=== PATIENT | male | born 1940 | race Caucasian/White ===

== ENCOUNTER 2020-11-24 11:28 | Inpatient (IN) | payer MEDICARE, OTHER ==
[~2020-11-24] VITALS: Ht 170.2 cm; Wt 48.4 kg
[~2020-11-24 11:28] MED LIST: ACET325T26 PO; AMLO-150 PO; AMOX1TAB64 PO; CLON1TAB11 PO; DOCU-131 PO; FOLI1TAB32 PO; LORA2ORA7 PO; LOSA25TA25 PO; LOSA50TA2 PO; METF-734 PO; MORPHINE PO; MOUT240M PO; OXYC10TA6 PO; RISP0.2515 PO; RISP0.5T24 PO; TRAZ150T62 PO; WARF7.5T46 PO; clonazepam; iron supplement; losartan; metformin; trazodone; warfarin
--- NOTE | 2020-11-24 11:38 | NUR ---
TP RN: TELEPHONE CALL FROM [facility]. STATES THAT EPS CASE WAS STARTED BY HER FASHION PHOTOGRAPHER. SENT FROM HOME W/ CONCERNS OF NEGLECT/ABUSE EVIDENCED BY INCREASED FALLS AND BRUISING ON THE FACE AND BRUISES IN DIFFERENT STAGES OF HEALING. STATES HOSPICE PROVIDER WILL COME IN TO SEE PT AND THEIR [employer] WORKER IS WORKING WITH THEM FOR PLACEMENT. PRIMARY RN UPDATED. [facility] [phone].
--- NOTE | 2020-11-24 11:59 | NUR ---
PT SKIN: BRUISING IN LATER STAGES OF HEALING AROUND BOTH EYES SCABBED WOUNDS TO PATIENTS EYEBROWS, BILATE SCRATCHES TO LOWER LEFT ABD. SKIN TEARS RIGHT ELBOW RIGHT HAND SWOLLEN BRUISING TORIGHT WRIST SCABBED WOUND TO LET ELBOW. SCABBED WOUND TO LEFT WRIST. PRESSURE SORES (BANDAGED TO BOTH LATERAL HIPS. DISCOLORED ANTERIOR CALVES WITH SCABBED WOUNDS OPEN SORE LEFT INDEX TOE
--- NOTE | 2020-11-24 11:59 | NUR ---
CONT SKIN: PRESSURE SORE ON COCCYX, CURRENTLY BANDAGED
[2020-11-24] MEDS ORDERED: SODIUM CHLORIDE FLUSH 10ML SYR IVF ONE (12:00)
[2020-11-24 12:52] LABS: BASOPHILS % (AUTO) 1 % (0-1); EOSINOPHILS % (AUTO) 3 % (1-7); LYMPHOCYTES % (AUTO) 31 % (22-44); MEAN CORPUSCULAR HEMOGLOBIN 29.6 pg (27.5-34.5); MEAN CORPUSCULAR HGB CONC 33.1 g/dL (33.2-36.2); MONOCYTES % (AUTO) 20 % (2-9); NEUTROPHILS % (AUTO) 45 % (42-75); PLATELET COUNT 172 x10^3/uL (130-400); RED BLOOD COUNT 4.03 x10^6/uL (4.38-5.82); RED CELL DISTRIBUTION WIDTH 14.1 % (9.4-14.8)
[2020-11-24 12:58] LABS: ALBUMIN 3.2 g/dL (3.4-5.0); ANION GAP 6 mmol/L (5-15); CALCIUM 8.9 mg/dL (8.5-10.1); CHLORIDE 103 mmol/L (98-107); MD NO
[2020-11-24 13:17] LABS: ALANINE AMINOTRANSFERASE 18 U/L (12-78); ALKALINE PHOSPHATASE 94 U/L (45-117); BILIRUBIN,TOTAL 0.5 mg/dL (0.2-1.0)
[2020-11-24 13:28] LABS: CREATININE 0.87 mg/dL (0.7-1.3)
--- NOTE | 2020-11-24 14:02 | NUR ---
BREAK RN: PT SLEEPING ON GURNEY. RESP EVEN AND UNLABORED. PT CONNECTED TO MONITORING. CALL LIGHT IN REACH.
[2020-11-24] MEDS ORDERED: ONDANSETRON 2MG/ML, 2ML IVPush PRN (15:00)
--- NOTE | 2020-11-24 15:19 | NUR ---
PHONE REPORT TO [facility]
[2020-11-24] MEDS ORDERED: SODIUM CHLORIDE FLUSH 10ML SYR IVF PRN (15:30)
[2020-11-24 15:54] VITALS: BP 135/62
[2020-11-24 20:12] VITALS: BP 148/68
[2020-11-25 01:46] VITALS: BP 145/71
[2020-11-25] MEDS: LORazepam 2 MG/ML, 1ML IVPush PRN ×2 (05:58→22:11)
[2020-11-25 08:15] VITALS: BP 155/74
[2020-11-25] MEDS: SENNA/DOCUSATE TABLET PO SCH (09:03)
[2020-11-25 13:09] VITALS: BP 147/76
[2020-11-25 20:15] VITALS: BP 138/74
[2020-11-26 01:58] VITALS: BP 129/55
[2020-11-26] MEDS: LORazepam 2 MG/ML, 1ML IVPush PRN ×2 (02:45→20:55)
[2020-11-26 07:39] VITALS: BP 136/58
[2020-11-26] MEDS: SENNA/DOCUSATE TABLET PO SCH (09:44)
[2020-11-26 12:38] VITALS: BP 155/78
[2020-11-26 19:02] VITALS: BP 170/78
[2020-11-27 01:32] VITALS: BP 154/75
[2020-11-27 07:30] VITALS: BP 125/64
[2020-11-27] MEDS: SENNA/DOCUSATE TABLET PO SCH (10:14)
[2020-11-27 12:07] VITALS: BP 115/67
[2020-11-27 18:30] VITALS: BP 146/79
[2020-11-27] MEDS: LORazepam 2 MG/ML, 1ML IVPush PRN (20:16)
[2020-11-28 00:03] VITALS: BP 124/76
[2020-11-28 08:00] VITALS: BP 108/61
[2020-11-28] MEDS: SENNA/DOCUSATE TABLET PO SCH (09:00)
[2020-11-28 14:54] VITALS: BP 115/58
[2020-11-28] MEDS: LORazepam 2 MG/ML, 1ML IVPush PRN ×2 (17:03→23:30)
[2020-11-28 19:04] VITALS: BP 135/70
[2020-11-29 01:37] VITALS: BP 117/68
[2020-11-29 07:15] VITALS: BP 132/70
[2020-11-29] MEDS: SENNA/DOCUSATE TABLET PO SCH (09:00)
[2020-11-29 13:37] VITALS: BP 115/70
[2020-11-29 19:15] VITALS: BP 144/73
[2020-11-29] MEDS: LORazepam 2 MG/ML, 1ML IVPush PRN (19:37)
[2020-11-30 03:10] VITALS: BP 137/69
[2020-11-30] MEDS: SENNA/DOCUSATE TABLET PO SCH (07:27)
[2020-11-30 07:35] VITALS: BP 129/62
[2020-11-30 12:10] VITALS: BP 133/58
[2020-11-30 18:48] VITALS: BP 131/79
[2020-11-30] MEDS: LORazepam 2 MG/ML, 1ML IVPush PRN (19:51)
[2020-12-01 00:15] VITALS: BP 154/89
[2020-12-01 08:02] VITALS: BP 112/77
[2020-12-01] MEDS: SENNA/DOCUSATE TABLET PO SCH (09:50)
[2020-12-01 13:13] VITALS: BP 127/66
[2020-12-01 19:15] VITALS: BP 150/82
[2020-12-02 00:53] VITALS: BP 154/82
[2020-12-02 07:05] VITALS: BP 137/71
[2020-12-02] MEDS: SENNA/DOCUSATE TABLET PO SCH (09:00)
[2020-12-02 14:04] VITALS: BP 136/66
[2020-12-02 20:20] VITALS: BP 152/82
[2020-12-02] MEDS: LORazepam 2 MG/ML, 1ML IVPush PRN (21:50)
[2020-12-03 01:37] VITALS: BP 148/76
[2020-12-03 08:24] VITALS: BP 132/72
[2020-12-03] MEDS: SENNA/DOCUSATE TABLET PO SCH (09:07)
[2020-12-03 14:41] VITALS: BP 143/65
[2020-12-03] MEDS: LORazepam 2 MG/ML, 1ML IVPush PRN (17:36)
[2020-12-03 18:56] VITALS: BP 134/68
[2020-12-04 01:45] VITALS: BP 133/70
[2020-12-04 06:50] VITALS: BP 149/78
[2020-12-04] MEDS: SENNA/DOCUSATE TABLET PO SCH (09:00)
[2020-12-04 13:23] VITALS: BP 132/74
[2020-12-04 19:09] VITALS: BP 117/57
[2020-12-04] MEDS: LORazepam 2 MG/ML, 1ML IVPush PRN (21:11)
[2020-12-05 01:25] VITALS: BP 148/82
[2020-12-05 06:45] VITALS: BP 146/84
[2020-12-05] MEDS: SENNA/DOCUSATE TABLET PO SCH (09:46)
[2020-12-05 14:03] VITALS: BP 149/70
[2020-12-05 18:54] VITALS: BP 109/62
[2020-12-06 01:19] VITALS: BP 114/57
[2020-12-06 06:55] VITALS: BP 157/81
[2020-12-06] MEDS: SENNA/DOCUSATE TABLET PO SCH (09:44)
[2020-12-06 12:20] VITALS: BP 135/69
[2020-12-06 18:35] VITALS: BP 136/62
[2020-12-07 00:31] VITALS: BP 145/71
[2020-12-07 07:06] VITALS: BP 136/70
[2020-12-07] MEDS: SENNA/DOCUSATE TABLET PO SCH (08:33)
[2020-12-07 12:28] VITALS: BP 149/80
[2020-12-07 18:53] VITALS: BP 135/71
[2020-12-08 00:58] VITALS: BP 128/69
[2020-12-08 08:12] VITALS: BP 132/71
[2020-12-08] MEDS: SENNA/DOCUSATE TABLET PO SCH (09:47)
[2020-12-08 13:20] VITALS: BP 148/70
[2020-12-08 19:03] VITALS: BP 134/56
[2020-12-09 01:15] VITALS: BP 136/66
[2020-12-09 07:54] VITALS: BP 124/68
[2020-12-09] MEDS: SENNA/DOCUSATE TABLET PO SCH (08:38)
[2020-12-09 14:00] VITALS: BP 120/60
[2020-12-09 19:16] VITALS: BP 134/67
[2020-12-10 00:20] VITALS: BP 144/63
[2020-12-10 06:38] VITALS: BP 127/69
[2020-12-10] MEDS: SENNA/DOCUSATE TABLET PO SCH (10:01)
[2020-12-10 12:58] VITALS: BP 123/63
[2020-12-10 20:03] VITALS: BP 118/59
[2020-12-11 04:04] VITALS: BP 111/61
[2020-12-11 07:14] VITALS: BP 119/63
[2020-12-11] MEDS ORDERED: DOCUSATE 50 MG/5 ML, 10ML UDC PO SCH (09:00)
[2020-12-11] MEDS ORDERED: SENNA 176 MG/5 ML ORAL SOL PO SCH (10:30)
[2020-12-11] MEDS: DOCUSATE 50 MG/5 ML, 10ML UDC PO SCH (11:20)
[2020-12-11] MEDS: SENNA 176 MG/5 ML ORAL SOL PO SCH (11:21)
[2020-12-11 13:09] VITALS: BP 127/71
[2020-12-11 19:11] VITALS: BP 132/77
[2020-12-12 01:04] VITALS: BP 110/60
[2020-12-12 06:48] VITALS: BP 138/81
[2020-12-12] MEDS: DOCUSATE 50 MG/5 ML, 10ML UDC PO SCH (09:03)
[2020-12-12] MEDS: SENNA 176 MG/5 ML ORAL SOL PO SCH (10:27)
[2020-12-12 13:42] VITALS: BP 137/67
[2020-12-12 18:39] VITALS: BP 149/71
[2020-12-13 00:48] VITALS: BP 133/62
[2020-12-13 06:51] VITALS: BP 143/73
[2020-12-13] MEDS: SENNA 176 MG/5 ML ORAL SOL PO SCH (09:00)
[2020-12-13] MEDS: DOCUSATE 50 MG/5 ML, 10ML UDC PO SCH (09:00)
[2020-12-13 13:22] VITALS: BP 136/68
[2020-12-13 18:55] VITALS: BP 142/73
[2020-12-13] MEDS: LORazepam 2 MG/ML, 1ML IVPush PRN (19:25)
[2020-12-14 00:17] VITALS: BP 125/70
[2020-12-14 07:30] VITALS: BP 127/58
[2020-12-14] MEDS: DOCUSATE 50 MG/5 ML, 10ML UDC PO SCH (09:00)
[2020-12-14] MEDS: SENNA 176 MG/5 ML ORAL SOL PO SCH (09:08)
[2020-12-14 12:47] VITALS: BP 112/50
[2020-12-14 18:59] VITALS: BP 126/76
[2020-12-15 00:23] VITALS: BP 120/68
[2020-12-15 06:34] VITALS: BP 113/58
[2020-12-15] MEDS: DOCUSATE 50 MG/5 ML, 10ML UDC PO SCH (09:19)
[2020-12-15] MEDS: SENNA 176 MG/5 ML ORAL SOL PO SCH (09:19)
[2020-12-15 12:53] VITALS: BP 129/66
[2020-12-15 19:14] VITALS: BP 151/63
[2020-12-16 00:14] VITALS: BP 129/72
[2020-12-16 07:42] VITALS: BP 154/71
[2020-12-16] MEDS: DOCUSATE 50 MG/5 ML, 10ML UDC PO SCH (09:54)
[2020-12-16] MEDS: SENNA 176 MG/5 ML ORAL SOL PO SCH (09:54)
[2020-12-16 12:36] VITALS: BP 139/71
[2020-12-16 20:05] VITALS: BP 132/69
[2020-12-17 00:15] VITALS: BP 145/73
[2020-12-17 08:13] VITALS: BP 177/73
[2020-12-17] MEDS: SENNA 176 MG/5 ML ORAL SOL PO SCH (11:17)
[2020-12-17] MEDS: DOCUSATE 50 MG/5 ML, 10ML UDC PO SCH (11:17)
[2020-12-17 12:31] VITALS: BP 119/67
[2020-12-17 18:32] VITALS: BP 130/65
[2020-12-18 01:30] VITALS: BP 121/64
[2020-12-18 06:42] VITALS: BP 127/61
[2020-12-18] MEDS: DOCUSATE 50 MG/5 ML, 10ML UDC PO SCH (10:39)
[2020-12-18] MEDS: SENNA 176 MG/5 ML ORAL SOL PO SCH (10:39)
[2020-12-18 14:06] VITALS: BP 111/58
[2020-12-18 18:42] VITALS: BP 100/58
[2020-12-19 01:35] VITALS: BP 121/66
[2020-12-19 06:42] VITALS: BP 114/66
[2020-12-19] MEDS: DOCUSATE 50 MG/5 ML, 10ML UDC PO SCH (08:51)
[2020-12-19] MEDS: SENNA 176 MG/5 ML ORAL SOL PO SCH (08:51)
[2020-12-19 14:30] VITALS: BP 112/78
[2020-12-19 18:36] VITALS: BP 125/71
[2020-12-20 01:23] VITALS: BP 120/68
[2020-12-20 08:00] VITALS: BP 123/64
[2020-12-20] MEDS: DOCUSATE 50 MG/5 ML, 10ML UDC PO SCH (09:57)
[2020-12-20] MEDS: SENNA 176 MG/5 ML ORAL SOL PO SCH (09:57)
[2020-12-20 13:25] VITALS: BP 124/63
[2020-12-20 19:02] VITALS: BP 136/63
[2020-12-21 01:32] VITALS: BP 128/64
[2020-12-21] MEDS: DOCUSATE 50 MG/5 ML, 10ML UDC PO SCH (07:10)
[2020-12-21] MEDS: SENNA 176 MG/5 ML ORAL SOL PO SCH (07:11)
[2020-12-21 07:25] VITALS: BP 104/55
[2020-12-21 12:15] VITALS: BP 128/62
[2020-12-21 19:00] VITALS: BP 154/73
[2020-12-22 00:16] VITALS: BP 101/72
[2020-12-22] MEDS: DOCUSATE 50 MG/5 ML, 10ML UDC PO SCH (07:09)
[2020-12-22] MEDS: SENNA 176 MG/5 ML ORAL SOL PO SCH (07:09)
[2020-12-22 08:22] VITALS: BP 123/63
[2020-12-22 12:21] VITALS: BP 116/61
[2020-12-22 20:06] VITALS: BP 125/68
[2020-12-23 01:26] VITALS: BP_SYST 102; BP_SYST 126; BP_DIAS 47; BP_DIAS 64
[2020-12-23 07:41] VITALS: BP 148/61
[2020-12-23] MEDS: SENNA 176 MG/5 ML ORAL SOL PO SCH (07:55)
[2020-12-23] MEDS: DOCUSATE 50 MG/5 ML, 10ML UDC PO SCH (07:55)
[2020-12-23 14:50] VITALS: BP 135/65
[2020-12-23 19:26] VITALS: BP 135/71
[2020-12-23 20:32] LABS: BASOPHILS % (AUTO) 0 % (0-1); EOSINOPHILS % (AUTO) 0 % (1-7); LYMPHOCYTES % (AUTO) 5 % (22-44); MEAN CORPUSCULAR HEMOGLOBIN 29.5 pg (27.5-34.5); MEAN CORPUSCULAR HGB CONC 33.3 g/dL (33.2-36.2); MEAN PLATELET VOLUME 8.6 fL (7.4-10.4); MONOCYTES % (AUTO) 7 % (2-9); NEUTROPHILS % (AUTO) 87 % (42-75); PLATELET COUNT 211 x10^3/uL (130-400); RED BLOOD COUNT 3.93 x10^6/uL (4.38-5.82); RED CELL DISTRIBUTION WIDTH 14.8 % (9.4-14.8)
[2020-12-23 20:34] LABS: MD NO
[2020-12-23 23:04] LABS: MICROSCOPIC INDICATED
[2020-12-24] MEDS ORDERED: ACETAMINOPHEN 650 MG SUPP PR PRN
[2020-12-24] MEDS: CEFTRIAXONE PMX 1GM/50ML 50 ML IV SCH (01:09)
[2020-12-24 02:40] VITALS: BP 119/60
[2020-12-24 07:33] VITALS: BP 132/57
[2020-12-24] MEDS: DOCUSATE 50 MG/5 ML, 10ML UDC PO SCH (10:55)
[2020-12-24] MEDS: SENNA 176 MG/5 ML ORAL SOL PO SCH (10:55)
[2020-12-24 12:50] VITALS: BP 144/65
[2020-12-24 15:38] VITALS: BP 120/56
[2020-12-24 18:29] VITALS: BP 97/46
[2020-12-25] MEDS: CEFTRIAXONE PMX 1GM/50ML 50 ML IV SCH (00:56)
[2020-12-25 01:59] VITALS: BP 148/89
[2020-12-25 08:00] VITALS: BP 147/62
[2020-12-25] MEDS: SENNA 176 MG/5 ML ORAL SOL PO SCH (09:59)
[2020-12-25] MEDS: DOCUSATE 50 MG/5 ML, 10ML UDC PO SCH (09:59)
[2020-12-25 12:35] VITALS: BP 119/57
[2020-12-25 19:19] VITALS: BP 135/66
[2020-12-26] MEDS: CEFTRIAXONE PMX 1GM/50ML 50 ML IV SCH (01:12)
[2020-12-26 01:34] VITALS: BP 116/47
[2020-12-26 08:00] VITALS: BP 117/48
[2020-12-26] MEDS: DOCUSATE 50 MG/5 ML, 10ML UDC PO SCH (10:18)
[2020-12-26] MEDS: SENNA 176 MG/5 ML ORAL SOL PO SCH (10:19)
[2020-12-26 13:45] VITALS: BP 126/61
[2020-12-26 18:58] VITALS: BP 129/69
[2020-12-27 00:57] VITALS: BP 148/64
[2020-12-27] MEDS: CEFTRIAXONE PMX 1GM/50ML 50 ML IV SCH (01:20)
[2020-12-27 07:17] VITALS: BP 146/68
[2020-12-27] MEDS: SENNA 176 MG/5 ML ORAL SOL PO SCH (09:33)
[2020-12-27] MEDS: DOCUSATE 50 MG/5 ML, 10ML UDC PO SCH (09:33)
[2020-12-27 14:06] VITALS: BP 108/64
[2020-12-27 19:55] VITALS: BP 124/75
[2020-12-28] MEDS: CEFTRIAXONE PMX 1GM/50ML 50 ML IV SCH (01:15)
[2020-12-28 02:25] VITALS: BP 145/78
[2020-12-28 07:00] VITALS: BP 147/71
[2020-12-28] MEDS: DOCUSATE 50 MG/5 ML, 10ML UDC PO SCH (08:44)
[2020-12-28] MEDS: SENNA 176 MG/5 ML ORAL SOL PO SCH (08:45)
[2020-12-28] MEDS: morphine SULFATE 10 MG/ML, 1ML IVPush PRN ×4 (08:56→22:02)
[2020-12-28 12:28] VITALS: BP 102/41
[2020-12-28] MEDS ORDERED: MORPHINE SULFATE 4 MG/ML, 1ML ONE (12:35)
[2020-12-28 20:05] VITALS: BP 125/70
[2020-12-29] MEDS: CEFTRIAXONE PMX 1GM/50ML 50 ML IV SCH (01:02)
[2020-12-29 01:18] VITALS: BP 132/56
[2020-12-29] MEDS: morphine SULFATE 10 MG/ML, 1ML IVPush PRN (04:01)
[2020-12-29 07:35] VITALS: BP 111/64
[2020-12-29] MEDS: SENNA 176 MG/5 ML ORAL SOL PO SCH (09:00)
[2020-12-29] MEDS: DOCUSATE 50 MG/5 ML, 10ML UDC PO SCH (09:30)
[2020-12-29 13:22] VITALS: BP 115/64
[2020-12-29 19:16] VITALS: BP 124/67
[2020-12-30] MEDS: morphine SULFATE 10 MG/ML, 1ML IVPush PRN (00:18)
[2020-12-30] MEDS: CEFTRIAXONE PMX 1GM/50ML 50 ML IV SCH (00:41)
[2020-12-30 00:45] VITALS: BP 131/77
[2020-12-30] MEDS: LORazepam 2 MG/ML, 1ML IVPush PRN ×2 (01:09→09:12)
[2020-12-30 06:25] VITALS: BP 120/69
[2020-12-30] MEDS: DOCUSATE 50 MG/5 ML, 10ML UDC PO SCH (08:53)
[2020-12-30] MEDS: SENNA 176 MG/5 ML ORAL SOL PO SCH (08:54)
== END 2020-12-30 10:15 | disposition hospice, home (50) | DRG 91 ==
LOC: ED 12:12 → SUATTDRO 12:50 → EDIP 14:40 → 3N 15:40 → 4NW 11-26 10:45 → 4NE 12-11 18:26 → 4NW 12-12 18:20 → 3N 12-27 18:31
PROVIDERS: ADMIT Internal Medicine; ATTEND Hospitalist
DX: G92 Toxic encephalopathy (principal); E43 Unspecified severe protein-calorie malnutrition; S02.31XA Fracture of orbital floor, right side, initial encounter for closed fracture; N39.0 Urinary tract infection, site not specified; Z68.1 Body mass index [BMI] 19.9 or less, adult; Z51.5 Encounter for palliative care; Z66 Do not resuscitate; Z20.822 Contact with and (suspected) exposure to COVID-19; E11.51 Type 2 diabetes mellitus with diabetic peripheral angiopathy without gangrene; F03.90 Unspecified dementia, unspecified severity, without behavioral disturbance, psychotic disturbance, mood disturbance, and anxiety; I10 Essential (primary) hypertension; I67.2 Cerebral atherosclerosis; L89.159 Pressure ulcer of sacral region, unspecified stage; S00.83XA Contusion of other part of head, initial encounter; B96.4 Proteus (mirabilis) (morganii) as the cause of diseases classified elsewhere; S02.2XXA Fracture of nasal bones, initial encounter for closed fracture; Z86.73 Personal history of transient ischemic attack (TIA), and cerebral infarction without residual deficits; S02.40FS Zygomatic fracture, left side, sequela; W18.39XS Other fall on same level, sequela
CPT/HCPCS: 36415; 70450; 70486; 71045; 72125; 80053; 81001; 83605; 85025; 86480; 87040; 87077; 87086; 87186; 87635; 93005; 99285; G0378; J0696; J2060; J2270